=== PATIENT | female | born 1970 | race Caucasian/White ===

== ENCOUNTER 2016-05-28 17:33 | Emergency (ER) | payer MEDICARE, OTHER ==
[~2016-05-28] VITALS: Ht 160 cm; Wt 60.0 kg
[~2016-05-28 17:33] MED LIST: RANI150 PO; XANA0.5T PO; ZOFR4TAB3 SL
--- NOTE | 2016-05-28 18:20 | PD ---
Physical Exam Time Seen by Provider: 18:18 Narrative 46-year-old female with history of anxiety here with complaints of bowel and bladder dysfunction for the past 2 days. Patient is here on [place] act by the [employer] Department as she was trying to slowly her vehicle and seemed to be extremely paranoid. She had some stories about demons and people attacking her. Now she is here complaining of abdominal pain, bowel and bladder dysfunction. She's used some crack cocaine and is unable to tell me if she actually has numbness anywhere. She says she's been prescribed Xanax twice a day for anxiety and has not had it recently and this has caused her to get to the point where she is. Data Data Orders Complete Blood Count With Diff (05/28/16 18:03) Comprehensive Metabolic Panel (05/28/16 18:03) Ed Urine Pregnancytest Poc (05/28/16 18:03) Psych Screen (05/28/16 18:03) Drug Screen, Random Urine (05/28/16 18:03) Alcohol (Ethanol) (05/28/16 18:03) MDM Medical Record Reviewed: Yes Supervised Visit with ASHLEY: No Interpretation(s) bowel and bladder incontinence, cauda equina, paranoia, anxiety Narrative Course 46-year-old female with history of anxiety here with complaints of bowel and bladder dysfunction for the past 2 days. Patient is here on [place] act by the Police Department as she was trying to slowly her vehicle and seemed to be extremely paranoid. She had some stories about demons and people attacking her. Now she is here complaining of abdominal pain, bowel and bladder dysfunction. She's used some crack cocaine and is unable to tell me if she actually has numbness anywhere. She says she's been prescribed Xanax twice a day for anxiety and has not had it recently and this has caused her to get to the point where she is. Patient seen and examined. She has some obvious bowel and bladder incontinence. She has abdominal pain with palpation to the epigastric and umbilical area . She is actually urinating on herself while I'm am in the examination room and is totally unaware. I have discussed this case with Dr. Lee Zheng and he recommends moving her to a medical pot for further evaluation and treatment. We have requested transfer to a medical pod. That provider will determine her disposition Condition: Caroline Cole May 28, 2016 18:20
[2016-05-28 18:29] VITALS: BP 155/94; PULSE 104; RESP 18; TEMP 98.4; O2SAT 95
[2016-05-28 18:44] LABS: AUTOMATED NEUTROPHIL # 6.8 TH/MM3 (1.8-7.7); BASOPHIL % 0.3 % (0.0-2.0); EOSINOPHIL # 0.1 TH/MM3 (0-0.4); EOSINOPHIL % 0.5 % (0.0-4.0); HEMATOCRIT 44.4 % (35.0-46.0); HEMO FLAGS DIFF FINAL; LYMPH % 24.5 % (9.0-44.0); LYMPHOCYTE # 2.5 TH/MM3 (1.0-4.8); MEAN CELL VOLUME 93.7 FL (80.0-100.0); MEAN CORPUSCULAR HEMOGLOBIN 31.6 PG (27.0-34.0); MEAN CORPUSCULAR HGB CONC 33.7 % (32.0-36.0); MONO % 8.7 % (0.0-8.0); PLATELET COUNT 159 TH/MM3 (150-450); RED BLOOD COUNT 4.74 MIL/MM3 (4.00-5.30); RED CELL DISTRIBUTION WIDTH 12.8 % (11.6-17.2); WHITE BLOOD COUNT 10.3 TH/MM3 (4.0-11.0)
[2016-05-28 18:54] LABS: AMPHETAMINE, URINE NEG (NEG); BARBITURATES, URINE NEG (NEG); COCAINE, URINE POS (NEG)
[2016-05-28 19:40] LABS: ANION GAP 13 MEQ/L (5-15)
[2016-05-28 19:48] LABS: ALKALINE PHOSPHATASE 97 U/L (45-117); ALT (GPT) 22 U/L (10-53); AST (GOT) 31 U/L (15-37); BICARBONATE 20.5 MEQ/L (21.0-32.0); BLOOD UREA NITROGEN 8 MG/DL (7-18); CHLORIDE 104 MEQ/L (98-107); GLOMERULAR FILTRATION RATE 77 ML/MIN (>89); POTASSIUM 3.6 MEQ/L (3.5-5.1); SODIUM (NA) 137 MEQ/L (136-145)
--- NOTE | 2016-05-28 20:47 | PD ---
Data Data Last Documented VS Vital Signs Date Time Temp Pulse Resp B/P Pulse Ox O2 Delivery O2 Flow Rate FiO2 05/28/16 18:29 102 24 05/28/16 18:29 98.4 155/94 95 Room Air Orders Complete Blood Count With Diff (05/28/16 18:03) Comprehensive Metabolic Panel (05/28/16 18:03) Ed Urine Pregnancytest Poc (05/28/16 18:03) Psych Screen (05/28/16 18:03) Drug Screen, Random Urine (05/28/16 18:03) Alcohol (Ethanol) (05/28/16 18:03) Mri T Spine W & W/O Contrast (05/28/16 ) Mri L Spine W&W/O Contrast (05/28/16 ) Ct Abd/Pel W/O Iv Contrast (05/28/16 20:08) Haloperidol Inj (Haldol Inj) (05/28/16 21:00) Lorazepam Inj (Ativan Inj) (05/28/16 21:00) Diphenhydramine Inj (Benadryl Inj) (05/28/16 21:00) Sodium Chlor 0.9% 1000 Ml Inj (Ns 1000 M (05/28/16 21:00) Blood Culture (05/28/16 20:50) C-Reactive Protein (Crp) (05/28/16 20:50) Westergren Sedimentation Rate (05/28/16 20:50) Urinalysis - C+S If Indicated (05/28/16 21:10) Cath For Specimen (05/28/16 21:10) Chest, Single Ap (05/28/16 21:10) Gadodiamide Pf Inj (Omniscan Pf Inj) (05/28/16 21:47) Labs Laboratory Tests Test 05/28/16 05/28/16 18:28 21:15 White Blood Count 10.3 TH/MM3 Red Blood Count 4.74 MIL/MM3 Hemoglobin 15.0 GM/DL Hematocrit 44.4 % Mean Corpuscular Volume 93.7 FL Mean Corpuscular Hemoglobin 31.6 PG Mean Corpuscular Hemoglobin 33.7 % Concent Red Cell Distribution Width 12.8 % Platelet Count 159 TH/MM3 Mean Platelet Volume 7.4 FL Neutrophils (%) (Auto) 66.0 % Lymphocytes (%) (Auto) 24.5 % Monocytes (%) (Auto) 8.7 % Eosinophils (%) (Auto) 0.5 % Basophils (%) (Auto) 0.3 % Neutrophils # (Auto) 6.8 TH/MM3 Lymphocytes # (Auto) 2.5 TH/MM3 Monocytes # (Auto) 0.9 TH/MM3 Eosinophils # (Auto) 0.1 TH/MM3 Basophils # (Auto) 0.0 TH/MM3 CBC Comment DIFF FINAL Differential Comment Sodium Level 137 MEQ/L Potassium Level 3.6 MEQ/L Chloride Level 104 MEQ/L Carbon Dioxide Level 20.5 MEQ/L Anion Gap 13 MEQ/L Blood Urea Nitrogen 8 MG/DL Creatinine 0.80 MG/DL Estimat Glomerular Filtration 77 ML/MIN Rate Random Glucose 77 MG/DL Calcium Level 9.2 MG/DL Total Bilirubin 1.0 MG/DL Aspartate Amino Transf 31 U/L (AST/SGOT) Alanine Aminotransferase 22 U/L (ALT/SGPT) Alkaline Phosphatase 97 U/L Total Protein 9.0 GM/DL Albumin 3.9 GM/DL Urine Opiates Screen NEG Urine Barbiturates Screen NEG Urine Amphetamines Screen NEG Urine Benzodiazepines Screen POS Urine Cocaine Screen POS Urine Cannabinoids Screen NEG Ethyl Alcohol Level 34 MG/DL Erythrocyte Sedimentation Rate 39 mm/hr C-Reactive Protein LESS THAN 0.29 MG/DL [facility] Medical Record Reviewed: Yes Supervised Visit with ASHLEY: No Interpretation(s) Last Impressions Chest X-Ray 05/28/162109 Signed Impressions: Service Date/Time: Saturday, May 28, 2016 21:11 - CONCLUSION: No acute disease. Hilario Garcia MD Abdomen/Pelvis CT 05/28/162007 Signed Impressions: Service Date/Time: Saturday, May 28, 2016 20:59 - CONCLUSION: 1. No acute findings abdomen and pelvic CT. Specifically no renal calculi or evidence for obstructive uropathy. Hilario Garcia MD Thoracic Spine MRI 05/28/16 0000 Signed Impressions: Service Date/Time: Saturday, May 28, 2016 21:26 - CONCLUSION: 1. No acute findings. No discrete disc protrusions or extrusions. Normal alignment. Mildly heterogeneous marrow likely representing some benign marrow conversion. Hilario Garcia MD Lumbar Spine MRI 05/28/16 0000 Signed Impressions: Service Date/Time: Saturday, May 28, 2016 21:26 - CONCLUSION: 1. No acute findings. No discrete disc protrusions, canal stenosis or nerve root compression. Marrow has a slightly heterogeneous appearance probably representing some benign marrow conversion. Hilario Garcia MD Differential Diagnosis Psychiatric disorder, versus urinary tract infection, versus substance induced mood disorder, versus epidural abscess, versus cauda equina syndrome, versus cord compression of other origin Narrative Course During the course of the patients emergency department visit, the patients history, examination, and differential diagnosis were reviewed with the patient. The patient had IV access obtained and blood work sent for analysis. The patient was initially evaluated by Caroline. Please see her complete history and physical. The patient was transferred over to a medical pod for evaluation after she was noted to have bladder and bowel incontinence and abdominal pain for additional workup. The patient arrives under a Puente act due to paranoid delusions. The patient's recent history is also significant for polysubstance abuse. Due to the bladder and bowel incontinence the T-spine and L-spine MRI was ordered on the patient. A CT scan of the abdomen and pelvis was also ordered on this patient. The patient's case was discussed with the initial physician that evaluated the patient, Dr. Zheng. He felt that if the patient's imaging studies were unremarkable, the patient could be medically cleared for admission to the psychiatric service The patient was initially provided normal saline 1 L IV fluid bolus. The patient was noted to be agitated on arrival to this medical pod. The patient was given Ativan 2 mg IV, Benadryl 25 mg IV, Haldol 5 mg IM. The patients laboratory studies were reviewed and remarkable for a white count of 10.3, hemoglobin 15, platelets 159 with a 8.7 monocytes, CMP is remarkable for CO2 20.5, GFR 77, total protein 9.0, urine drug screen is positive for benzodiazepines and cocaine, alcohol level XXXIV. sedimentation rate is 39, blood cultures 2 were collected, C-reactive protein less than 0.29 Radiology studies were reviewed and remarkable for a chest x-ray that is unremarkable. CT scan of the abdomen and pelvis that shows no acute abnormality. CT scan of the T-spine shows no acute findings. CT scan of lumbar spine also says no acute findings. The patient has been medically cleared for evaluation and admission under a Puente act for further stabilization from a psychiatric standpoint. Diagnosis Primary Impression: Bowel and bladder incontinence Additional Impression: Polysubstance abuse Condition: Allyson Hartmann MD May 28, 2016 20:47
[2016-05-28] MEDS ORDERED: LORazepam 2 MG/ML VIAL IV PUSH ONE (21:00)
[2016-05-28] MEDS ORDERED: HALOPERIDOL LACTATE 5 MG/ML AMP IM ONE (21:00)
[2016-05-28] MEDS ORDERED: SODIUM CHLOR 0.9% 1000 ML INJ 1,000 ML IV ONE (21:00)
[2016-05-28] MEDS ORDERED: diphenhydrAMINE HCL 50 MG/ML VIAL IV PUSH ONE (21:00)
--- NOTE | 2016-05-28 21:30 | RADRPT ---
EXAM DATE/TIME: 05/28/2016 21:11 [facility] COMPARISON: No previous studies available for comparison. INDICATIONS : Cough. MEDICAL HISTORY : None. SURGICAL HISTORY : None. ENCOUNTER: Initial ACUITY: 1 day PAIN SCORE: 0/10 LOCATION: Bilateral chest FINDINGS: A single view of the chest demonstrates the lungs to be symmetrically aerated without evidence of mas s, infiltrate or effusion. The cardiomediastinal contours are unremarkable. Osseous structures are intact. CONCLUSION: No acute disease. Hilario Garcia MD on May 28, 2016 at 21:28 Board Certified Radiologist. This report was verified electronically.
[2016-05-28] MEDS ORDERED: GADODIAMIDE PF 287 MG/ML 10 ML VIAL (for RAD MRI) IV ONE (21:47)
--- NOTE | 2016-05-28 22:14 | RADRPT ---
EXAM DATE/TIME: 05/28/2016 20:59 [facility] COMPARISON: No previous studies available for comparison. INDICATIONS : Right flank pain. ORAL CONTRAST: No oral contrast ingested. RADIATION DOSE: 3.88 CTDIvol (mGy) MEDICAL HISTORY : None SURGICAL HISTORY : Tubal ligation. ENCOUNTER: Initial ACUITY: 1 day PAIN SCALE: 6/10 LOCATION: Right flank TECHNIQUE: Volumetric scanning of the abdomen and pelvis was performed. Using automated exposure control and ad justment of the mA and/or kV according to patient size, radiation dose was kept as low as reasonably achievable to obtain optimal diagnostic quality images. FINDINGS: Lung bases demonstrate some dependent atelectasis. No acute findings in the liver, spleen, adrenals, kidneys or pancreas. No calcified gallstones. There is no free fluid. No bowel obstruction. No adenopathy. No acute bony abnormalities. CONCLUSION: 1. No acute findings abdomen and pelvic CT. Specifically no renal calculi or evidence for obstructive uropathy. Hilario Garcia MD on May 28, 2016 at 22:08 Board Certified Radiologist. This report was verified electronically.
--- NOTE | 2016-05-28 23:05 | RADRPT ---
EXAM DATE/TIME: 05/28/2016 21:26 [facility] COMPARISON: No previous studies available for comparison. INDICATIONS : Urine and fecal incontinence. CONTRAST: 10 cc Omniscan (gadodiamide) IV MEDICAL HISTORY : None. SURGICAL HISTORY : Tubal ligation. Breast implants. ENCOUNTER: Initial ACUITY: 1 day PAIN SCORE: 3/10 LOCATION: Paraspinal TECHNIQUE: Multiplanar multisequence MRI of the lumbar spine was performed with and without contrast. FINDINGS: The most caudal appearing lumbar vertebra is numbered as L5. VERTEBRAE: Heterogeneous marrow signal. CONUS: Normal level and configuration. POST CONTRAST: No abnormal areas of contrast enhancement are seen. T12-L1: The thecal sac has a normal diameter. No evidence of disc bulge or protrusion. The neural foramina are patent bilaterally. L1-L2: The thecal sac has a normal diameter. No evidence of disc bulge or protrusion. The neural foramina are patent bilaterally. L2-L3: The thecal sac has a normal diameter. No evidence of disc bulge or protrusion. The neural foramina are patent bilaterally. L3-L4: The thecal sac has a normal diameter. No evidence of disc bulge or protrusion. The neural foramina are patent bilaterally. L4-L5: The thecal sac has a normal diameter. No evidence of disc bulge or protrusion. The neural foramina are patent bilaterally. L5-S1: The thecal sac has a normal diameter. No evidence of disc bulge or protrusion. The neural foramina are patent bilaterally. CONCLUSION: 1. No acute findings. No discrete disc protrusions, canal stenosis or nerve root compression. Marrow has a slightly heterogeneous appearance probably representing some benign marrow conversion. Hilario Garcia MD on May 28, 2016 at 23:00 Board Certified Radiologist. This report was verified electronically.
--- NOTE | 2016-05-28 23:10 | RADRPT ---
EXAM DATE/TIME: 05/28/2016 21:26 [facility] COMPARISON: No previous studies available for comparison. INDICATIONS : Urine and fecal incontinence. CONTRAST: 10 cc Omniscan (gadodiamide) IV MEDICAL HISTORY : None. SURGICAL HISTORY : Tubal ligation. Breast implants. ENCOUNTER: Initial ACUITY: 1 day PAIN SCORE: 3/10 LOCATION: Paraspinal TECHNIQUE: Multiplanar multisequence MRI of the thoracic spine was performed. FINDINGS: VERTEBRA: Normal vertebral body height. Heterogeneous marrow. ALIGNMENT: Normal. CORD: Normal position and configuration. POST CONTRAST: No abnormal areas of contrast enhancement seen. T1-T2: Normal. T2-T3: The thecal sac has a normal diameter. No evidence of disc bulge or protrusion. T3-T4: The thecal sac has a normal diameter. No evidence of disc bulge or protrusion. T4-T5: The thecal sac has a normal diameter. No evidence of disc bulge or protrusion. T5-T6: The thecal sac has a normal diameter. No evidence of disc bulge or protrusion. T6-T7: The thecal sac has a normal diameter. No evidence of disc bulge or protrusion. T7-T8: The thecal sac has a normal diameter. No evidence of disc bulge or protrusion. T8-T9: The thecal sac has a normal diameter. No evidence of disc bulge or protrusion. T9-T10: The thecal sac has a normal diameter. No evidence of disc bulge or protrusion. T10-T11: The thecal sac has a normal diameter. No evidence of disc bulge or protrusion. T11-T12: The thecal sac has a normal diameter. No evidence of disc bulge or protrusion. T12-L1: The thecal sac has a normal diameter. No evidence of disc bulge or protrusion. CONCLUSION: 1. No acute findings. No discrete disc protrusions or extrusions. Normal alignment. Mildly heterogene ous marrow likely representing some benign marrow conversion. Hilario Garcia MD on May 28, 2016 at 23:04 Board Certified Radiologist. This report was verified electronically.
[2016-05-29] VITALS: BP 152/79; PULSE 66; RESP 16; O2SAT 94
[2016-05-29 03:00] VITALS: BP 148/81; PULSE 74; RESP 16; O2SAT 97
[2016-05-29 09:22] VITALS: BP 120/62; PULSE 76; RESP 16; O2SAT 97
--- NOTE | 2016-05-29 11:28 | PD ---
History of Present Illness Chief Complaint: Psychiatric Symptoms Time Seen by Provider: 11:00 Travel History International Travel<30 Days: No Contact w/Intl Traveler<30days: No Known affected area: No Legal Status Legal Status: Puente Act Pu[place] Act Signed By: Corbin Dominguez History of Present Illness: This is a 46-year-old female who apparently was Puente acted by police after erratic driving, paranoid ideation and incontinence of bowel. The patient does admit to smoking crack cocaine and is currently not intoxicated. She currently denies any suicidal or homicidal ideation, plan or intention. She denies paranoid ideation or other psychotic symptoms. She denies problems with bowel or bladder control. She does feel that her recent symptomatology was related to her crack cocaine use. At this time she is verbally wei for safety and her cognition is completely intact and felt to be baseline. PFSH Past Medical History Arthritis: Yes (OSTIO) Bipolar Disorder: Yes Anxiety: Yes Depression: Yes Diminished Hearing: No Insomnia: Yes Immunizations Current: Yes ?: Not Menopausal: No : 2 Para: 2 Tubal Ligation: Yes Psychiatric History Psychiatric History Hx Psychiatric Treatment: YES patient states she has been treated for depression in the past. History of Inpatient Treatment: Yes Guns or firearms in home: No Social History Hx Alcohol Use: Yes (on occasion) Hx Tobacco Use: Yes (1 ppd ) Hx Substance Use: Yes (abuse of crack) Substance Use Type: Nicotine/Cigarettes, Prescription Medications, Benzos ( Valium,Xanax), Synth Opiates-Pain Pills Allergies-Medications (Allergen,Severity, Reaction): Coded Allergies: No Known Allergies (Unverified , 08/23/13) Reported Meds & Prescriptions Reported Meds & Active Scripts Active Zofran ODT (Ondansetron HCl) 4 Mg Tab 4 Mg SL QID PRN FOR NAUSEA/VOMITING Zantac (Ranitidine HCl) 150 Mg Tab 150 Mg PO BID Reported Xanax 0.5 mg (Alprazolam) Alprazolam 0.5 mg Tab 1 Tab PO BID Review of Systems ROS Limitations: Clinical Condition Exam Exam Limitations: Clinical Condition Alert: Yes Artemas: Person, Place, Date, Situation Mood: Calm Affect: Appropriate Speech: Clear Eye Contact: Normal Memory Intact: Immediate, Recent, Remote Insight/Judgement Adequate at this point. [facility] Medical Decision Making Medical Record Reviewed: Yes Assessment/Plan At this time, the patient does not meet criteria for Puente act and it was lifted. Additionally, she does not meet criteria for inpatient hospitalization from a psychiatric standpoint. She would like to go home and this physician agrees. She also was encouraged to never use crack cocaine or other illicit drugs. She was willing to verbally contract for safety and showed no evidence of psychosis. Orders Complete Blood Count With Diff (05/28/16 18:03) Comprehensive Metabolic Panel (05/28/16 18:03) Ed Urine Pregnancytest Poc (05/28/16 18:03) Psych Screen (05/28/16 18:03) Drug Screen, Random Urine (05/28/16 18:03) Alcohol (Ethanol) (05/28/16 18:03) Mri T Spine W & W/O Contrast (05/28/16 ) Mri L Spine W&W/O Contrast (05/28/16 ) Ct Abd/Pel W/O Iv Contrast (05/28/16 20:08) Haloperidol Inj (Haldol Inj) (05/28/16 21:00) Lorazepam Inj (Ativan Inj) (05/28/16 21:00) Diphenhydramine Inj (Benadryl Inj) (05/28/16 21:00) Sodium Chlor 0.9% 1000 Ml Inj (Ns 1000 M (05/28/16 21:00) Blood Culture (05/28/16 20:50) C-Reactive Protein (Crp) (05/28/16 20:50) Westergren Sedimentation Rate (05/28/16 20:50) Urinalysis - C+S If Indicated (05/28/16 21:10) Cath For Specimen (05/28/16 21:10) Chest, Single Ap (05/28/16 21:10) Gadodiamide Pf Inj (Omniscan Pf Inj) (05/28/16 21:47) Diet Regular Basic (05/29/16 Breakfast) Results Vital Signs Date Time Temp Pulse Resp B/P Pulse Ox O2 Delivery O2 Flow Rate FiO2 05/29/16 10:07 76 16 4/17/17 09:22 76 16 120/62 97 Room Air 05/29/16 03:00 74 16 148/81 97 Room Air 05/29/16 00:00 66 16 152/79 94 Room Air 05/28/16 18:29 102 24 05/28/16 18:29 98.4 104 18 155/94 95 Room Air Laboratory Tests Test 05/28/16 05/28/16 18:28 21:15 White Blood Count 10.3 Red Blood Count 4.74 Hemoglobin 15.0 Hematocrit 44.4 Mean Corpuscular Volume 93.7 Mean Corpuscular Hemoglobin 31.6 Mean Corpuscular Hemoglobin 33.7 Concent Red Cell Distribution Width 12.8 Platelet Count 159 Mean Platelet Volume 7.4 Neutrophils (%) (Auto) 66.0 Lymphocytes (%) (Auto) 24.5 Monocytes (%) (Auto) 8.7 Eosinophils (%) (Auto) 0.5 Basophils (%) (Auto) 0.3 Neutrophils # (Auto) 6.8 Lymphocytes # (Auto) 2.5 Monocytes # (Auto) 0.9 Eosinophils # (Auto) 0.1 Basophils # (Auto) 0.0 CBC Comment DIFF FINAL Differential Comment Sodium Level 137 Potassium Level 3.6 Chloride Level 104 Carbon Dioxide Level 20.5 Anion Gap 13 Blood Urea Nitrogen 8 Creatinine 0.80 Estimat Glomerular Filtration 77 Rate Random Glucose 77 Calcium Level 9.2 Total Bilirubin 1.0 Aspartate Amino Transf 31 (AST/SGOT) Alanine Aminotransferase 22 (ALT/SGPT) Alkaline Phosphatase 97 Total Protein 9.0 Albumin 3.9 Urine Opiates Screen NEG Urine Barbiturates Screen NEG Urine Amphetamines Screen NEG Urine Benzodiazepines Screen POS Urine Cocaine Screen POS Urine Cannabinoids Screen NEG Ethyl Alcohol Level 34 Erythrocyte Sedimentation Rate 39 C-Reactive Protein LESS THAN 0.29 Date/Time Procedure Status Source Growth 05/28/16 22:30 Aerobic Blood Culture Worksheet Blood Peripheral Pending 05/28/16 22:30 Anaerobic Blood Culture Worksheet Blood Peripheral Pending Diagnosis Primary Impression: Cocaine abuse Condition: Stable Jamie Nolan MD May 29, 2016 11:16
== END 2016-05-29 11:22 | disposition home or self-care (01) ==
LOC: NEPD 17:33 → NEPJ 05-29 11:22
DX: F14.10 Cocaine abuse, uncomplicated (principal); R10.13 Epigastric pain; R11.2 Nausea with vomiting, unspecified; R05 Cough; F31.9 Bipolar disorder, unspecified; R15.9 Full incontinence of feces; R32 Unspecified urinary incontinence; F22 Delusional disorders; F17.210 Nicotine dependence, cigarettes, uncomplicated
CPT/HCPCS: 71010; 72157; 72158; 74176; 80053; 80307; 84703; 85025; 85652; 86140; 87040; 96361; 96372; 96374; 96375; 99284; A9579; J1200; J1630; J2060; J7030